=== PATIENT | male | born 1950 | race Caucasian/White ===

== ENCOUNTER 2017-07-18 09:37 | Emergency (ER) | payer MEDICARE, OTHER ==
[~2017-07-18] VITALS: Ht 180.3 cm; Wt 95.5 kg
[~2017-07-18 09:37] MED LIST: AMOXICILLIN 50500 MG PO; DILANTIN 100MG100 MG PO; DILANTIN PO; ENABLEX PO; MYSOLINE250 MG PO; NORCO 325 MG-51 TAB PO; PERCOCET 325 MG1 TA2 PO; PHENOBARBITAL; PHENOBARBITAL PO; PRIL40 PO; ULTRAM 50MG TAB50 MG PO; ZOFRAN8 MG PO
[2017-07-18 09:40] VITALS: BP 101/78; PULSE 112; TEMP 97.1
[2017-07-18] MEDS ORDERED: CARAFATE S1 GM/10 ML PO (11:46)
== END 2017-07-18 11:55 | disposition home or self-care (01) ==
LOC: COL.ER 09:37
DX: K20.8 Other esophagitis (principal)

== ENCOUNTER 2018-09-20 19:56 | Emergency (ER) | payer MEDICARE ==
[~2018-09-20] VITALS: Ht 180.3 cm; Wt 90.9 kg
[~2018-09-20 19:56] MED LIST changes: +CARAFATE S1 GM/10 ML PO
[2018-09-20 20:53] LABS: BASO % 0.6 % (0.0-2.0); EOS % 0.2 % (0-4.0); GRAN # 4.1 (1.4-6.5); HEMATOCRIT 40.1 % (42.0-52.0); HEMOGLOBIN 13.7 g/dl (13.5-18.0); LYMPH # 1.5 (1.2-3.4); LYMPH % 24.4 % (20.0-51.0); MEAN CELL VOLUME 89 fl (80.0-100.0); MEAN CORPUSCULAR HEMOGLOBIN 30 pg (27.0-31.0); MEAN CORPUSCULAR HGB CONC 34 g/dl (33.0-37.0); MEAN PLATELET VOLUME 9.4 fl (7.4-10.4); MONO # 0.6 (0.1-0.6); MONO % 9.3 % (1.7-9.3); PLATELET COUNT 271 K/mm3 (130-400); REDCELL DISTRIBUTION WIDTH-CV 12.9 % (11.5-14.5)
[2018-09-20 20:58] LABS: INR 1.1 (0.8-3.0); PROTHROMBIN TIME 12.3 SECONDS (9.7-12.8)
[2018-09-20 21:03] LABS: ALANINE AMINOTRANSFERASE 29 U/L (21-72); ALBUMIN 4.1 gm/dL (3.5-5.0); ALKALINE PHOSPHATASE 112 U/L (50-136); ANION GAP 10 mmol/L (7-16); AST,SGOT 28 U/L (15-37); BILIRUBIN,TOTAL 0.5 mg/dL (0.0-1.0); BLOOD UREA NITROGEN 2 mg/dL (9-20); CALCIUM 8.4 mg/dL (8.4-10.2); CARBON DIOXIDE 26 mmol/L (22-30); CHLORIDE 98 mmol/L (98-107); CREATININE, serum 0.46 mg/dL (0.66-1.25); GLUCOSE 106 mg/dL (74-106); POTASSIUM 3.1 mmol/L (3.4-5.0); SODIUM 134 mmol/L (137-145); TOTAL PROTEIN 7.5 gm/dL (6.4-8.2)
[2018-09-20 21:14] LABS: TROPONIN-I < 0.012 ng/mL (0.000-0.034)
[2018-09-20] MEDS ORDERED: KEPPRA 500MG500 MG PO (21:15)
[2018-09-20 21:17] LABS: D-DIMER > 5250.00 ng/mLDDu (200-230)
[2018-09-20 21:18] LABS: PROLACTIN 49.2 ng/mL (3.7-17.9)
[2018-09-20 22:56] LABS: COLLECTION METHOD CLEAN CATCH
[2018-09-20 23:02] LABS: PH 7 (5-8); SQUAMOUS EPITHELIAL None Seen /hpf; URINE APPEARANCE Clear; URINE BACTERIA Rare /hpf; URINE BILIRUBIN Negative (NEGATIVE); URINE BLOOD Negative (NEGATIVE); URINE COLOR Colorless; URINE GLUCOSE Negative (NEGATIVE); URINE KETONE Negative (NEGATIVE); URINE LEUKOCYTE ESTERASE Negative (NEGATIVE); URINE NITRATE Negative (NEGATIVE); URINE PROTEIN(semi-quant) Negative (NEGATIVE); URINE RBC None Seen /hpf; URINE UROBILINOGEN Negative (NEGATIVE)
[2018-09-21 00:38] VITALS: BP 106/79; PULSE 78; TEMP 97.4
[2018-09-21 15:35] LABS: PHENOBARBITAL 37 ug/mL (15-40)
[2018-09-24 11:50] LABS: LEVETIRACETAM <2.0 mcg/mL (())
== END 2018-09-21 00:55 | disposition home or self-care (01) ==
LOC: COL.ER 19:56
PROVIDERS: Emergency Medicine
DX: G40.909 Epilepsy, unspecified, not intractable, without status epilepticus (principal); F31.9 Bipolar disorder, unspecified; E87.6 Hypokalemia; F99 Mental disorder, not otherwise specified
CPT/HCPCS: J1200; J1630; J7030; Q9967

== ENCOUNTER 2019-03-01 17:02 | Emergency (ER) | payer MEDICARE ==
[~2019-03-01] VITALS: Ht 180.3 cm; Wt 72.7 kg
[~2019-03-01 17:02] MED LIST changes: +KEPPRA 500MG500 MG PO
[2019-03-01 17:22] VITALS: TEMP 98.1
[2019-03-01 18:33] LABS: BASO # 0.1 (0.0-0.2); BASO % 0.9 % (0.0-2.0); EOS # 0.1 (0.0-0.7); EOS % 1.2 % (0-4.0); GRAN # 3.8 (1.4-6.5); GRAN % 66.7 % (42.2-75.2); HEMATOCRIT 41.6 % (42.0-52.0); HEMOGLOBIN 14.2 g/dl (13.5-18.0); LYMPH # 1.3 (1.2-3.4); LYMPH % 22.6 % (20.0-51.0); MEAN CELL VOLUME 89 fl (80.0-100.0); MEAN CORPUSCULAR HEMOGLOBIN 30 pg (27.0-31.0); MEAN CORPUSCULAR HGB CONC 34 g/dl (33.0-37.0); MEAN PLATELET VOLUME 9.3 fl (7.4-10.4); MONO # 0.5 (0.1-0.6); MONO % 8.4 % (1.7-9.3); PLATELET COUNT 256 K/mm3 (130-400); RED BLOOD COUNT 4.67 M/mm3 (4.20-5.60); REDCELL DISTRIBUTION WIDTH-CV 13.2 % (11.5-14.5)
[2019-03-01 18:49] LABS: ALANINE AMINOTRANSFERASE 14 U/L (21-72); ALBUMIN 4.1 gm/dL (3.5-5.0); ALKALINE PHOSPHATASE 101 U/L (50-136); ANION GAP 11 mmol/L (7-16); AST,SGOT 32 U/L (15-37); BILIRUBIN,TOTAL 0.6 mg/dL (0.0-1.0); BLOOD UREA NITROGEN 7 mg/dL (9-20); CALCIUM 8.8 mg/dL (8.4-10.2); CARBON DIOXIDE 25 mmol/L (22-30); CHLORIDE 101 mmol/L (98-107); CREATININE, serum 0.47 (0.66-1.25); GLUCOSE 110 mg/dL (74-106); LIPASE 51 U/L (23-300); POTASSIUM 3.9 mmol/L (3.4-5.0); SODIUM 138 mmol/L (137-145); TOTAL PROTEIN 7.8 gm/dL (6.4-8.2)
[2019-03-01 19:01] LABS: TROPONIN-I < 0.012 ng/mL (0.000-0.035)
[2019-03-01 20:00] VITALS: BP 95/79; PULSE 80
[2019-03-01] MEDS ORDERED: VALIUM 5MG T5 MG/TAB PO (20:06)
== END 2019-03-01 20:20 | disposition home or self-care (01) ==
LOC: COL.ER 17:02
PROVIDERS: Emergency Medicine
DX: G47.00 Insomnia, unspecified (principal); R56.9 Unspecified convulsions; Z86.69 Personal history of other diseases of the nervous system and sense organs
CPT/HCPCS: J1200; J1630; J2060; J7030

== ENCOUNTER 2020-10-06 10:20 | Inpatient (IN) | payer MEDICARE, OTHER ==
[~2020-10-06] VITALS: Ht 180.3 cm; Wt 90.9 kg
[~2020-10-06 10:20] MED LIST changes: +MYSOLINE 250MG250 MG PO; -MYSOLINE250 MG PO; -PHENOBARBITAL PO; +PHENOBARBITAL32.4 MG PO; +VALIUM 5MG T5 MG/TAB PO
[2020-10-06 11:50] LABS: ALANINE AMINOTRANSFERASE 15 U/L (4-49); ALBUMIN 3.7 gm/dL (3.5-5.0); ALKALINE PHOSPHATASE 158 U/L (50-136); ANION GAP 7 mmol/L (7-16); AST,SGOT 34 U/L (15-37); BILIRUBIN,TOTAL 0.7 mg/dL (0.0-1.0); CALCIUM 8.5 mg/dL (8.4-10.2); CARBON DIOXIDE 29 mmol/L (22-30); CHLORIDE 97 mmol/L (98-107); CREATININE, serum 0.52 (0.66-1.25); GLUCOSE 115 mg/dL (74-106); SODIUM 134 mmol/L (137-145); TOTAL PROTEIN 7.2 gm/dL (6.4-8.2)
[2020-10-06 11:54] LABS: BASO # 0.1 (0.0-0.2); EOS # 0.3 (0.0-0.7); EOS % 4.9 % (0-4.0); GRAN # 3.4 (1.4-6.5); GRAN % 50.8 % (42.2-75.2); HEMATOCRIT 39.2 % (42.0-52.0); HEMOGLOBIN 13.4 g/dl (13.5-18.0); LYMPH # 2.1 (1.2-3.4); LYMPH % 31.2 % (20.0-51.0); MEAN CELL VOLUME 88 fl (80.0-100.0); MEAN CORPUSCULAR HEMOGLOBIN 30 pg (27.0-31.0); MEAN CORPUSCULAR HGB CONC 34 g/dl (33.0-37.0); MEAN PLATELET VOLUME 9.9 fl (7.4-10.4); MONO # 0.8 (0.1-0.6); MONO % 11.7 % (1.7-9.3); PLATELET COUNT 435 K/mm3 (130-400); RED BLOOD COUNT 4.46 M/mm3 (4.20-5.60); REDCELL DISTRIBUTION WIDTH-CV 13.5 % (11.5-14.5)
[2020-10-06 11:56] LABS: INR 1.3 (0.8-3.0); PROTHROMBIN TIME 14.2 SECONDS (9.7-12.8)
[2020-10-06 12:14] LABS: BLOOD UREA NITROGEN < 2 mg/dL (9-20)
[2020-10-06 12:15] LABS: POTASSIUM 2.9 mmol/L (3.4-5.0)
--- NOTE | 2020-10-06 13:45 | NUR ---
CONSULTED DR. CHETNA EDMOND FROM [facility] ON ORIF TOMORROW.
[2020-10-06 18:59] LABS: COLLECTION METHOD CLEAN CATCH
[2020-10-06 19:05] LABS: PH 7 (5-8); SQUAMOUS EPITHELIAL 0-2 /hpf; URINE APPEARANCE Clear; URINE BACTERIA None Seen /hpf; URINE BILIRUBIN Negative (NEGATIVE); URINE BLOOD Negative (NEGATIVE); URINE COLOR Yellow; URINE GLUCOSE Negative (NEGATIVE); URINE KETONE 1+ (NEGATIVE); URINE LEUKOCYTE ESTERASE Negative (NEGATIVE); URINE NITRATE Negative (NEGATIVE); URINE PROTEIN(semi-quant) Negative (NEGATIVE); URINE RBC 0-2 /hpf
[2020-10-06 20:00] VITALS: BP 97/55; PULSE 80; TEMP 98
--- NOTE | 2020-10-06 20:15 | NUR ---
During pt assessment pt was incontinent of bm and when cleaning pt there were to areas noted on the pt bottom. The pt has two areas on his bottom that have a scab on them. They are on both sides of the pt bottom. A dressing was applied at this time. The pt did state to me that he has had some areas that were healing on his bottom. Pt has his call light within reach.
[2020-10-07] VITALS (15 sets, daily range): BP systolic 83–107; BP diastolic 51–60; PULSE 69–83; TEMP 97.4–98.4
--- NOTE | 2020-10-07 00:12 | NUR ---
Pt is currently resting in bed. Pt did take his potassium with apple juice. Pt has no complaints of pain at this time. He did request something to help he sleep and he was given melatonin at this time. Pt has his call light within reach and his bed is in lowest position.
--- NOTE | 2020-10-07 03:02 | NUR ---
Pt currently resting in bed. Pt has his call light within reach. Pt has been using the urinal throughout the night.
--- NOTE | 2020-10-07 05:06 | NUR ---
Pt blood pressures have been soft throughout the night. Pt vitals were checked this morning. The pt is due to have surgery this morning. So Dr. Driver was contacted at this time to update him on pt status. He ordered a 500 of NS bolus at this time. Pt is currently lying in bed and stated that he feels fine. Pt was informed about the change in his blood pressure and what the doctor has ordered. Pt has his call light within reach and his bed is in lowest position.
--- NOTE | 2020-10-07 05:56 | NUR ---
Pt was assessed this morning and the pt stated that he had only gone a little since the last time I emptied his urinal. Pt was bladder scanned at this time and it showed that the pt bladder had greater than 900. Pt had an order for a bello, pt stated he would probably need a catheter to empty his bladder because he felt like he needed to go. A 16fr bello was placed at this time. Pt tolerated well. The bello bag was emptied at this time and pt had 1150 as his output the urine was yellow and clear, no odor noted. Pt stated that he feels so much better and he didn't feel the pressure anymore. Pt has his call light within reach, lab is currently in his room doing lab draws.
[2020-10-07 06:38] LABS: BASO % 0.6 % (0.0-2.0); EOS # 0.2 (0.0-0.7); GRAN # 2.8 (1.4-6.5); GRAN % 53.2 % (42.2-75.2); HEMOGLOBIN 11.6 g/dl (13.5-18.0); LYMPH # 1.6 (1.2-3.4); LYMPH % 29.2 % (20.0-51.0); MEAN CELL VOLUME 91 fl (80.0-100.0); MEAN CORPUSCULAR HEMOGLOBIN 30 pg (27.0-31.0); MEAN CORPUSCULAR HGB CONC 33 g/dl (33.0-37.0); MEAN PLATELET VOLUME 9.8 fl (7.4-10.4); MONO # 0.7 (0.1-0.6); MONO % 12.8 % (1.7-9.3); PLATELET COUNT 354 K/mm3 (130-400); RED BLOOD COUNT 3.82 M/mm3 (4.20-5.60)
[2020-10-07 06:41] LABS: HEMATOCRIT 34.9 % (42.0-52.0)
[2020-10-07 06:48] LABS: ALBUMIN 3.1 gm/dL (3.5-5.0); BILIRUBIN,TOTAL 0.4 mg/dL (0.0-1.0); CALCIUM 7.8 mg/dL (8.4-10.2); CREATININE, serum 0.53 (0.66-1.25); POTASSIUM 3.4 mmol/L (3.4-5.0); TOTAL PROTEIN 6.1 gm/dL (6.4-8.2)
--- NOTE | 2020-10-07 16:27 | NUR ---
Tallow Pumper met with patient to discuss discharge planning. Patient has an ankle fracture and states when he injured it at home, his ex- who he lives with thought it was just a sprain and would not call for help. Patient states he doesn't have a phone and his ex- won't let him use hers. Patient also states that his ex- spends his social security money and spent his $600 stimulus money on her daughter's rent without his knowledge. Patient lives in [place] with his ex-, Toyin (ph#[phone]). Patient is difficult to complete intake with as he has difficulty focusing on SW's questions and frequently changes the subject to his previous jobs, his previous marriages, and things that have happened to him in the past. Patient states his primary care physician is Dr. Roberts. Patient states Toyin got him a walker recently and is normally independent with ADLS. Patient does not have Advance Directives. Patient states he has two biological children, Suzanne and Bailey but does not have their phone numbers. Patient could not remember Toyin's phone number or the phone numbers to his step-children, Cathy and Teagan. Patient states his step-daughter, Cathy is the one that checked up on him and finally convinced Toyin that he needed to be seen in the ED. Patient states he plans to return home at discharge and would be interested in Home Health. MEGAN will follow up on PT/OT recommendations. Patient to have surgery this afternoon. MEGAN made an APS report (intake #[id number]).
--- NOTE | 2020-10-07 17:00 | NUR ---
PATIENT GOING DOWN TO OR VIA BED. CONSENT ON CHART. PATIENT OFF FLOOR
--- NOTE | 2020-10-07 20:30 | NUR ---
PATIENT UP FROM PACU. VSS. NO COMPLAINTS OF PAIN. PATIENT ABLE TO MOVE HIS KNEE BUT NOT ANYTHING BELOW THAT. PATIENT IS CONCERNED ABOUT THE RODS IN HIS ANKLE. HE WANTS TO SLEEP ON HIS SIDE BUT TOLD HIM HE WOULD HAVE TO SLEEP ON HIS BACK. CALL LIGHT IS WITHIN REACH. NO OTHER NEEDS AT THIS TIME.
[2020-10-08 03:54] VITALS: BP 96/51; PULSE 67; TEMP 97.7
--- NOTE | 2020-10-08 06:02 | NUR ---
PATIENT SLEPT ON AND OFF THROUGHOUT THE NIGHT. NO COMPLAINTS OF PAIN. PATIENT IS CONCERNED ABOUT HIS LEG AND NOT BEING ABLE TO SLEEP ON HIS SIDE. BLOOD PRESSURES HAVE BEEN SOFT. FLUIDS RUNNING AT 125/HOUR.
[2020-10-08 07:14] LABS: BASO % 0.6 % (0.0-2.0); EOS % 0.5 % (0-4.0); GRAN # 4.2 (1.4-6.5); GRAN % 64.5 % (42.2-75.2); HEMOGLOBIN 11.5 g/dl (13.5-18.0); LYMPH # 1.7 (1.2-3.4); LYMPH % 25.6 % (20.0-51.0); MEAN CELL VOLUME 95 fl (80.0-100.0); MEAN CORPUSCULAR HEMOGLOBIN 30 pg (27.0-31.0); MEAN CORPUSCULAR HGB CONC 32 g/dl (33.0-37.0); MONO # 0.6 (0.1-0.6); MONO % 8.5 % (1.7-9.3); PLATELET COUNT 354 K/mm3 (130-400); RED BLOOD COUNT 3.85 M/mm3 (4.20-5.60); REDCELL DISTRIBUTION WIDTH-CV 14.4 % (11.5-14.5)
[2020-10-08 07:23] LABS: HEMATOCRIT 36.4 % (42.0-52.0)
[2020-10-08 07:31] LABS: CALCIUM 7.9 mg/dL (8.4-10.2); CREATININE, serum 0.44 (0.66-1.25); POTASSIUM 4.1 mmol/L (3.4-5.0)
[2020-10-08 08:00] VITALS: BP 121/65; PULSE 97; TEMP 97.9
--- NOTE | 2020-10-08 10:31 | NUR ---
Initial visit; Patient thanked Roller Helper for offering God's blessings and praying with him. Patient liked talking about his spirituality.
--- NOTE | 2020-10-08 11:23 | NUR ---
PT REFUSING TO TAKE HOSPITAL PROVIDED MEDICATIONS. ONLY WANTS TO TAKE MEDICATION FROM HOME. DR. GRISSOM NOTIFIED. DRESSING TO RIGHT ANKLE CDI WITH OCCLUSIVE ARMAND WRAP OVER INCISION.
[2020-10-08 13:11] VITALS: BP 95/47; PULSE 78; TEMP 97.8
[2020-10-08 16:00] VITALS: BP 98/62; PULSE 80; TEMP 98.1
--- NOTE | 2020-10-08 16:02 | NUR ---
Flame Hardening Machine Operator collaborated with PT/OT and they are recommending placement for patient. MEGAN met with patient who states he is agreeable to placement locally or out of town. MEGAN contacted patient's ex , Toyin (ph#[phone]) who advised they have been for 20 years but patient moved in with her about four years ago. Toyin states patient moved here from [place] and had been told he either needed to move in with family or go to a mcc. Toyin advised that patient is independent with ADLS but she does his grocery shopping for him. Toyin states that she just thought patient had a sprain. Toyin is in agreement that patient needs placement. MEGAN faxed referrals to [facility], [facility], [facility], and [facility]. MEGAN obtained Dr. Dunham's signature on non weightbearing letter and placed on patient's chart. [facility] declined referral. CELINA Denise SW here to see patient.
--- NOTE | 2020-10-08 16:07 | NUR ---
Horse Racing Manager gave referral to [facility]. Clary with [facility] advised patient to have neurology consult and they will screen on Sunday.
--- NOTE | 2020-10-08 16:21 | NUR ---
Hayden at [facility] advised they are out of network for [employer].
--- NOTE | 2020-10-08 16:47 | NUR ---
LOJA CATHETER DISCONTINUED PER JACQUELINE NUNEZ. PT TOLERATED WELL.
[2020-10-08 19:50] VITALS: BP 121/67; PULSE 85; TEMP 97.8
--- NOTE | 2020-10-08 22:19 | NUR ---
PATIENT RESTING IN BED WITH NO COMPLAINTS. TOLD HIM TO CALL IF HE FELT THE NEED TO HAVE A BOWEL MOVEMENT BECAUSE WE NEEDED A SAMPLE. PATIENT AGREED.
[2020-10-08 23:00] VITALS: BP 103/59; PULSE 79; TEMP 98.7
--- NOTE | 2020-10-08 23:11 | NUR ---
PATIENT REQUESTED LESS INTERRUPTIONS THROUGHOUT THE NIGHT SO MIDNIGHT VITALS WERE DONE AND MELATONIN WAS GIVEN AT THIS TIME. WILL CHECK ON PATIENT DURING THE NIGHT.
--- NOTE | 2020-10-09 01:44 | NUR ---
PATIENT HAD LOOSE BOWEL MOVEMENT. COLLECTED SPECIMEN FOR LAB AND TOOK DOWN. PATIENT CLEANED UP AND REPLACED MEPALEX ON BOTTOM. AREA REDDENED AND HAS A SCAB. PATIENT HAS NO OTHER NEEDS AT THIS TIME.
[2020-10-09 02:48] LABS: CLOSTRIDIUM DIFF A/B NEG; CLOSTRIDIUM DIFF A/B INTERP No C.diff present
[2020-10-09 04:00] VITALS: BP 103/59; PULSE 71; TEMP 97.7
--- NOTE | 2020-10-09 04:24 | NUR ---
PATIENT NEGATIVE FOR CDIFF AND OCCULT STOOL. CONTACT PERCAUTIONS DISCONTINUED.
[2020-10-09 06:55] LABS: BASO # 0.1 (0.0-0.2); EOS # 0.3 (0.0-0.7); EOS % 4.2 % (0-4.0); GRAN # 3.3 (1.4-6.5); GRAN % 56.5 % (42.2-75.2); HEMOGLOBIN 11.2 g/dl (13.5-18.0); LYMPH # 1.7 (1.2-3.4); LYMPH % 28.4 % (20.0-51.0); MEAN CELL VOLUME 92 fl (80.0-100.0); MEAN CORPUSCULAR HEMOGLOBIN 30 pg (27.0-31.0); MEAN CORPUSCULAR HGB CONC 33 g/dl (33.0-37.0); MEAN PLATELET VOLUME 9.7 fl (7.4-10.4); MONO # 0.6 (0.1-0.6); MONO % 9.7 % (1.7-9.3); PLATELET COUNT 329 K/mm3 (130-400); REDCELL DISTRIBUTION WIDTH-CV 14.6 % (11.5-14.5)
[2020-10-09 06:59] LABS: HEMATOCRIT 34.2 % (42.0-52.0)
[2020-10-09 07:05] LABS: CALCIUM 8.1 mg/dL (8.4-10.2); CREATININE, serum 0.49 (0.66-1.25); POTASSIUM 3.8 mmol/L (3.4-5.0)
[2020-10-09 08:29] VITALS: BP 105/57; PULSE 84; TEMP 98.1
--- NOTE | 2020-10-09 10:19 | NUR ---
SW is waiting on screens for [facility], [facility], [facility] (will screen Sunday), [facility], [place], and [place]. No new needs. Social work will continue to follow.
--- NOTE | 2020-10-09 11:59 | NUR ---
Patient alert and oriented, answers questions appropriately. See assessment. RLE with gauze/ABD/external fixator in place. Able to feel and wiggle toes to RLE. NWB RLE. External fixator cleaned with alcohol. PT/OT. No c/o at this time.
[2020-10-09 12:06] VITALS: BP 106/68; PULSE 87; TEMP 97.6
[2020-10-09 16:08] VITALS: BP 99/65; PULSE 84; TEMP 97.5
[2020-10-09 20:00] VITALS: BP 101/64; PULSE 84; TEMP 98.8
--- NOTE | 2020-10-09 21:53 | NUR ---
PATIENT INCONTINENT OF STOOL. CLEANED HIM UP AND FULL LINEN CHANGE. RIGHT ANKLE ELEVATED. PATIENT TOOK NIGHT MEDS AND REQUESTED HIS MELATONIN AROUND 11 PM.
[2020-10-09 23:55] VITALS: BP 109/56; PULSE 80; TEMP 98.6
[2020-10-10 04:15] VITALS: BP 104/66; PULSE 78; TEMP 97.7
--- NOTE | 2020-10-10 05:45 | NUR ---
PATIENT SLEPT WELL THROUGHOUT THE NIGHT WITH NO COMPLAINTS OF PAIN. RIGHT LOWER EXTREMITY ELEVATED.
[2020-10-10 06:23] LABS: BASO # 0.1 (0.0-0.2); BASO % 1.3 % (0.0-2.0); EOS # 0.3 (0.0-0.7); EOS % 6.1 % (0-4.0); GRAN # 2.5 (1.4-6.5); GRAN % 45.1 % (42.2-75.2); LYMPH # 1.9 (1.2-3.4); LYMPH % 35.7 % (20.0-51.0); MEAN CELL VOLUME 93 fl (80.0-100.0); MEAN CORPUSCULAR HEMOGLOBIN 31 pg (27.0-31.0); MEAN CORPUSCULAR HGB CONC 33 g/dl (33.0-37.0); MEAN PLATELET VOLUME 10.1 fl (7.4-10.4); MONO # 0.6 (0.1-0.6); MONO % 11.6 % (1.7-9.3); PLATELET COUNT 314 K/mm3 (130-400); RED BLOOD COUNT 3.59 M/mm3 (4.20-5.60); REDCELL DISTRIBUTION WIDTH-CV 14.9 % (11.5-14.5)
[2020-10-10 06:28] LABS: HEMATOCRIT 33.5 % (42.0-52.0)
[2020-10-10 06:30] LABS: CALCIUM 7.9 mg/dL (8.4-10.2); CREATININE, serum 0.52 (0.66-1.25); POTASSIUM 3.8 mmol/L (3.4-5.0)
[2020-10-10 07:51] VITALS: BP 105/64; PULSE 89; TEMP 97.8
--- NOTE | 2020-10-10 11:13 | NUR ---
Patient alert and oriented, answers questions appropriately. See assessment. RLE with ARMAND/gauze/external fixator in place. External fixator cleaned with alcohol pads. No numbness or tingling to RLE, able to wiggle toes. NWB RLE. Post op exercises reviewed with patient. No c/o at this time.
[2020-10-10 11:50] VITALS: BP 101/56; PULSE 80; TEMP 98
[2020-10-10 15:52] VITALS: BP 114/83; PULSE 81; TEMP 98.5
[2020-10-10 19:17] VITALS: BP 108/71; PULSE 82; TEMP 97.4
--- NOTE | 2020-10-10 22:17 | NUR ---
Pt currently sitting up in bed. Pt did have a loose bm tonight. He does have some redness on his bottom and two areas that look like they are healing. A dressing was applied to bottom at this time. Pt has no other concerns at this time. Pt stated that he has had amazing care since he has been her and he feels like he is well taken care of. Pt has his call light within reach and his bed is in lowest position and seziure precautions in place.
[2020-10-10 23:48] VITALS: BP 116/67; PULSE 80; TEMP 97.6
--- NOTE | 2020-10-11 01:01 | NUR ---
Pt requested something to help him sleep at this time. Pt was given melatonin at this time. Pt has his call light within reach and his bed is in lowest position. Pt was reminded to try to reposition a little to relieve some pressure off of his bottom.
[2020-10-11 04:19] VITALS: BP 109/62; PULSE 80; TEMP 97
--- NOTE | 2020-10-11 05:29 | NUR ---
Pt resting in bed. Pt has his call light within reach. Pt has rested well since he had his melatonin.
[2020-10-11 07:03] LABS: BASO % 0.7 % (0.0-2.0); EOS # 0.3 (0.0-0.7); EOS % 5.1 % (0-4.0); GRAN # 3.1 (1.4-6.5); GRAN % 53.9 % (42.2-75.2); LYMPH # 1.7 (1.2-3.4); LYMPH % 29.9 % (20.0-51.0); MEAN CELL VOLUME 93 fl (80.0-100.0); MEAN CORPUSCULAR HEMOGLOBIN 30 pg (27.0-31.0); MEAN CORPUSCULAR HGB CONC 32 g/dl (33.0-37.0); MONO # 0.6 (0.1-0.6); PLATELET COUNT 323 K/mm3 (130-400); RED BLOOD COUNT 3.65 M/mm3 (4.20-5.60); REDCELL DISTRIBUTION WIDTH-CV 14.7 % (11.5-14.5)
[2020-10-11 07:09] LABS: CREATININE, serum 0.65 (0.66-1.25); POTASSIUM 3.7 mmol/L (3.4-5.0)
[2020-10-11 07:25] LABS: HEMATOCRIT 33.9 % (42.0-52.0)
[2020-10-11 07:48] VITALS: BP 107/64; PULSE 86; TEMP 98.2
[2020-10-11 11:29] VITALS: BP 103/63; PULSE 87; TEMP 97.9
--- NOTE | 2020-10-11 11:30 | NUR ---
Patient has been resting comfortably at this time. Minimal complaints of pain. Had some pain with transfer to chair. Denies nausea. Dressing to RLE is C/D/I. No drainage. External fixation intact. CMS intact to RLE. Utlram given after he got up. Patient has a lot of questions about his other foot. Explained Ortho doctor will talk with him. No other changes at this time. Call light within reach.
[2020-10-11 16:01] VITALS: BP 103/63; PULSE 75; TEMP 97.7
--- NOTE | 2020-10-11 16:33 | NUR ---
Artist Representative faxed updates to [facility], [facility], and [facility]. ME[facility] also [facility]. Cuong from [facility] and [facility] have both declined referral. MEGAN received a [facility] who advised they cannot accept referral with the external fixator. MEGAN contacted Rach from [facility] who advised they would need a copy of patient's Medicaid Application and three months of bank statements. Rach also inquired about patient's [employer] number because it's coming up as invalid. MEGAN confirmed with Gwendolyn that the [employer] number on the facesheet is correct. MEGAN contacted Mena at [facility] who advised they are still reviewing and would like a copy of patient's Medicaid Application. MEGAN contacted Amelie at [facility] who advised she would work on getting in touch with [employer]. MEGAN has consulted Gwendolyn with financial counseling who will complete Medicaid Application with patient. MEGAN spoke with Sam at [facility] who expressed concern about patient's non weight bearing status and possibility of patient needing to private pay. Sam also expressed concern about APS involvement with patient. MEGAN received a phone call from Toyin who wanted to clarify some things with MEGAN. Toyin states patient always has access to his funds, she just does the shopping and bills for patient. Toyin states she gives patient $100 per month out of his check to spend on whatever he wants. Toyin states they split bills evening. Toyin also states that she and her kids are patient's family and she really thought his ankle was just sprained. MEGAN will continue to follow.
--- NOTE | 2020-10-11 18:49 | NUR ---
Patient is doing well this afternoon. No other changes at this time. SW is still working on finding placement. Pain well controlled with ultram. Call light within reach.
[2020-10-11 20:05] VITALS: BP 114/65; PULSE 89; TEMP 99
--- NOTE | 2020-10-11 20:16 | NUR ---
Resting in bed. Assessment complete. Bases bilaterally diminshed otherwise clear. Heart sounds normal. Bowels active x4. Pulses present throughout. Left lower extremity edema +2. Right ankle bulky dressing in place. CMS intact. Reports 7/10 pain. Given PRN tramadol at this time. INT right wrist flushed without complications. Denies other needs at this time. Call light in reach.
--- NOTE | 2020-10-12 00:11 | NUR ---
Resting in bed. Denies pain. Given PRN melatonin at this time. Denies other needs. Call light in reach.
[2020-10-12 01:13] VITALS: BP 99/58; PULSE 73; TEMP 97.2
--- NOTE | 2020-10-12 01:56 | NUR ---
Resting in bed asleep. Call light in reach.
--- NOTE | 2020-10-12 03:53 | NUR ---
Resting in bed. Denies needs. Call light in reach.
[2020-10-12 04:27] VITALS: BP 95/60; PULSE 80; TEMP 98.4
--- NOTE | 2020-10-12 05:39 | NUR ---
Patient required PRN tramadol for pain control during night. Otherwise uneventful night. Resting in bed asleep this AM. Call light in reach.
--- NOTE | 2020-10-12 06:58 | NUR ---
Report given to VERONIKA Barnes
[2020-10-12 08:00] VITALS: BP 111/67; PULSE 82; TEMP 97.9
[2020-10-12] MEDS ORDERED: ASPI325T6 PO (08:52)
[2020-10-12] MEDS ORDERED: ULTRAM 50MG TAB50 MG PO ×3 (08:55→17:57)
[2020-10-12 11:17] VITALS: BP 94/64; PULSE 80; TEMP 97.8
[2020-10-12 14:49] VITALS: BP 94/64; PULSE 80; TEMP 97.8
--- NOTE | 2020-10-12 15:31 | NUR ---
Mask Design Engineer was contacted by Amelie at [facility] who advised they obtained authorization from [facility] for patient and can accept today. Patient will have a $70/day co pay. Gwendolyn, Financial Counselor completed and submitted an application for Medicaid, then provided MEGAN with a copy. MEGAN met with patient who is agreeable to [facility]. MEGAN advised patient he would have a $70/day co pay. Patient verbalized understanding and stated he thought this was reasonable. Patient states Gwendolyn helped him apply for Medicaid. MEGAN collaborated with Amelie to set up transport for 1500. MEGAN faxed discharge orders, copy of Medicaid application, and negative COVID results to Amelie at [facility]. Patient wanted MEGAN to call Toyin to notify her that he was going to [facility]. MEGAN contacted Toyin and notified her patient to discharge to [facility] today. MEGAN also notified CELINA Denise Mask Design Engineer about discharge. No additional needs at this time.
--- NOTE | 2020-10-12 16:00 | NUR ---
Patient is discharging to [facility] halfway. Report called to RN at the longterm. All belongings packed up and sent with patient. INT discontinued by charge nurse. Info packed sent with patient.
[2020-10-13] MEDS ORDERED: ULTRAM 50MG TAB50 MG PO (12:51)
== END 2020-10-12 16:30 | DRG 493 ==
LOC: COL.ER 10:20 → SURG 13:14
PROVIDERS: Nurse Practitioner Primary Care; Orthopaedic Surgery; Physician Assistant; Student in an Organized Health Care Education/Training Program; ADMIT Hospitalist
PROC: 0QSG34Z Reposition Right Tibia with Internal Fixation Device, Percutaneous Approach (ICD-10-PCS; 2020-10-07)
PROC: 0QSG34Z Reposition Right Tibia with Internal Fixation Device, Percutaneous Approach (ICD-10-PCS; principal; 2020-10-07 16:30)
DX: S82.851A Displaced trimalleolar fracture of right lower leg, initial encounter for closed fracture (principal); K92.1 Melena; E87.1 Hypo-osmolality and hyponatremia; S93.01XA Subluxation of right ankle joint, initial encounter; S93.439A Sprain of tibiofibular ligament of unspecified ankle, initial encounter; G40.909 Epilepsy, unspecified, not intractable, without status epilepticus; D64.9 Anemia, unspecified; E87.6 Hypokalemia; I95.9 Hypotension, unspecified; R74.8 Abnormal levels of other serum enzymes; F32.9 Major depressive disorder, single episode, unspecified; G47.00 Insomnia, unspecified; M21.6X2 Other acquired deformities of left foot; R19.7 Diarrhea, unspecified; D69.6 Thrombocytopenia, unspecified; Z20.822 Contact with and (suspected) exposure to COVID-19; Z87.891 Personal history of nicotine dependence
CPT/HCPCS: 99222-AI; 99232-AI; 99239; A9284; C1713; J0690; J1100; J2250; J2405; J2704; J2795; J3010; J3480; J7030; J7040

== ENCOUNTER 2021-06-24 07:14 | Observation (INO) | payer MEDICARE, MEDICAID ==
[~2021-06-24] VITALS: Ht 180.3 cm; Wt 95.4 kg
[~2021-06-24 07:14] MED LIST changes: +ASPI325T6 PO
[2021-06-24 08:10] LABS: BASO # 0.1 K/mm3 (0.0-0.2); BASO % 0.9 % (0.0-2.0); EOS # 0.3 K/mm3 (0.0-0.7); EOS % 4.7 % (0-4.0); GRAN # 3.1 K/mm3 (1.4-6.5); HEMATOCRIT 43.8 % (42.0-52.0); HEMOGLOBIN 14.3 g/dl (13.5-18.0); LYMPH # 1.4 K/mm3 (1.2-3.4); LYMPH % 25.3 % (20.0-51.0); MEAN CELL VOLUME 92 fl (80.0-100.0); MEAN CORPUSCULAR HEMOGLOBIN 30 pg (27.0-31.0); MEAN CORPUSCULAR HGB CONC 33 g/dl (33.0-37.0); MEAN PLATELET VOLUME 9.2 fl (7.4-10.4); MONO # 0.6 K/mm3 (0.1-0.6); MONO % 11.9 % (1.7-9.3); PLATELET COUNT 251 K/mm3 (130-400); RED BLOOD COUNT 4.78 M/mm3 (4.20-5.60); REDCELL DISTRIBUTION WIDTH-CV 13.6 % (11.5-14.5)
[2021-06-24 08:30] LABS: ALBUMIN 3.5 gm/dL (3.4-4.8); BILIRUBIN,TOTAL 0.5 mg/dL (0.2-1.2); CALCIUM 8.7 mg/dL (8.4-10.2); CREATININE, serum 0.8 mg/dL (0.72-1.25); POTASSIUM 3.8 mmol/L (3.5-4.5); TOTAL PROTEIN 7.4 gm/dL (6.2-8.1)
[2021-06-24 08:39] LABS: TROPONIN-I 0.05 ng/mL (0.00-0.033)
[2021-06-24] MEDS ORDERED: PHENOBARBITAL60 MG PO (17:36)
[2021-06-24 19:54] VITALS: BP 122/73; PULSE 86; TEMP 98.4
--- NOTE | 2021-06-24 22:57 | NUR ---
Patient arrived to surgical floor room 343 from ER around 19:40 pm. Patient alert and oriented. Patient denies chest pain, headache, and ankle pain at this time. VS stable. Oriented patient to the room. Scheduled seizure medications given per NOV. Seizure precautions in place. Malik light in reach. Bed alarms on. Will continue to monitor.
[2021-06-24 23:19] VITALS: BP 110/64; PULSE 73; TEMP 97.9
[2021-06-25 03:11] VITALS: BP 91/52; PULSE 86; TEMP 98.5
--- NOTE | 2021-06-25 06:42 | NUR ---
Patient slept well over the night. No c/o pain or discomfort throughout the night. Patient use call light to call nurse around 06:30 am and reports he is starting to have headache again. Will give PRN Tylenol for headache.
--- NOTE | 2021-06-25 06:46 | NUR ---
PRN Tylenol given for headache. Patient denies chest pain, N/V, or dizziness. Call light in reach.
[2021-06-25 07:10] VITALS: BP 119/91; PULSE 77; TEMP 97.8
[2021-06-25 07:18] LABS: CHOLESTEROL RISK RATIO 2.5
[2021-06-25 08:57] LABS: BASO # 0.1 K/mm3 (0.0-0.2); BASO % 0.8 % (0.0-2.0); EOS # 0.2 K/mm3 (0.0-0.7); GRAN # 3.8 K/mm3 (1.4-6.5); HEMATOCRIT 41.3 % (42.0-52.0); HEMOGLOBIN 13.9 g/dl (13.5-18.0); LYMPH # 1.6 K/mm3 (1.2-3.4); LYMPH % 25.4 % (20.0-51.0); MEAN CELL VOLUME 90 fl (80.0-100.0); MEAN CORPUSCULAR HEMOGLOBIN 30 pg (27.0-31.0); MEAN CORPUSCULAR HGB CONC 34 g/dl (33.0-37.0); MEAN PLATELET VOLUME 10.2 fl (7.4-10.4); MONO # 0.7 K/mm3 (0.1-0.6); MONO % 10.3 % (1.7-9.3); PLATELET COUNT 280 K/mm3 (130-400); REDCELL DISTRIBUTION WIDTH-CV 13.5 % (11.5-14.5)
[2021-06-25 09:07] LABS: CALCIUM 8.9 mg/dL (8.4-10.2); CREATININE, serum 0.68 mg/dL (0.72-1.25); POTASSIUM 3.9 mmol/L (3.5-4.5)
[2021-06-25 10:00] VITALS: BP 105/60; PULSE 82; TEMP 98
--- NOTE | 2021-06-25 11:24 | NUR ---
Chaplain bauer and offered support with patient.
--- NOTE | 2021-06-25 15:36 | NUR ---
Plan is to return home to [facility] locally where patient resides. Patient reports that his is fairly independent and his PCP is Dr. Hodgson . Patient [facility]. Patient indicated that he has a cane and walker and a cardio box. Patient reports that he has a DTR [facility] who lives in [facility] and he has a living will and a 5000 dollar policy. Patient reports that he does not talk to his DTR often but the clinical administrator of the hotel know how to get a hold of her and to notify her if he passes or is unable to verbals and the howner of the hotel knows where the paperwork is. Patient denies having any other concerns and does not want [facility]. Will follow for care.
[2021-06-25 16:00] VITALS: BP 94/57; PULSE 87; TEMP 98.1
--- NOTE | 2021-06-25 18:29 | NUR ---
Patient has been doing well today. Minimal complaints of pain. Denies nausea. Explained his doppler won't be done today. Physician aware as well. Headache has been off and on today but patient did not want anything additional for pain. No other changes at this time. Call light within reach.
[2021-06-25 20:14] VITALS: BP 107/69; PULSE 80; TEMP 98.8
--- NOTE | 2021-06-25 20:25 | NUR ---
PT IN BED, ASKING FOR HS MEDS. IS ALERT AND ORIENTED X4. HAS SL X2 TO RT WRIST. DISTAL SL INFILTRATED WHEN FLUSHED AND REMOVED AT THIS TIME, ANGIOCATH INTACT. VOIDING PER URINAL. ON SZ PRECAUTIONS. HAS SPLINT TO LEFT WRIST. BILATERAL LOWER LEG SWELLING NOTED, WITH FLAKY/SCALY SKIN TO LOWER LEGS AND FEET. DENIES PAIN.
[2021-06-26] VITALS (7 sets, daily range): BP systolic 91–114; BP diastolic 59–85; PULSE 84–92; TEMP 97.4–98.5
[2021-06-26 01:43] LABS: PHENOBARBITAL 21 ug/mL (15-40)
--- NOTE | 2021-06-26 06:00 | NUR ---
PT RESTING IN BED. NO CONCERNS VOICED AT THIS TIME.
[2021-06-26 07:38] LABS: BASO # 0.1 K/mm3 (0.0-0.2); BASO % 1.1 % (0.0-2.0); EOS # 0.2 K/mm3 (0.0-0.7); EOS % 3.6 % (0-4.0); GRAN # 2.7 K/mm3 (1.4-6.5); GRAN % 47.3 % (42.2-75.2); HEMATOCRIT 40.5 % (42.0-52.0); HEMOGLOBIN 13.4 g/dl (13.5-18.0); LYMPH % 35.5 % (20.0-51.0); MEAN CELL VOLUME 92 fl (80.0-100.0); MEAN CORPUSCULAR HEMOGLOBIN 31 pg (27.0-31.0); MEAN CORPUSCULAR HGB CONC 33 g/dl (33.0-37.0); MEAN PLATELET VOLUME 10.3 fl (7.4-10.4); MONO # 0.7 K/mm3 (0.1-0.6); MONO % 12.1 % (1.7-9.3); PLATELET COUNT 253 K/mm3 (130-400); REDCELL DISTRIBUTION WIDTH-CV 13.2 % (11.5-14.5)
[2021-06-26 08:01] LABS: CALCIUM 8.6 mg/dL (8.4-10.2); CREATININE, serum 0.66 mg/dL (0.72-1.25); MAGNESIUM 2.2 mg/dL (1.6-2.6); POTASSIUM 3.6 mmol/L (3.5-4.5)
--- NOTE | 2021-06-26 18:00 | NUR ---
Patient has been doing well. He had a headache this morning but has been fine since getting tylenol. Attempted several times to get him in the shower but he refused. Also tried to get him to brush his teeth. Explained he has a procedure tomorrow and he needs to get cleaned up, he still refused. He has not been eating much today. He stated he has no appetite. No other changes at this time. Call light within reach.
--- NOTE | 2021-06-26 20:30 | NUR ---
Pt. sitting up in bed. Pt. is A&OX3, assessment complete. INT to rt. wrist patent. Pt. offered a shower this evening. Pt. refused. Pt. denies pain or other needs, call light within reach.
[2021-06-27] VITALS (9 sets, daily range): BP systolic 90–120; BP diastolic 55–71; PULSE 78–102; TEMP 97.4–98.2
--- NOTE | 2021-06-27 08:00 | NUR ---
PATIENT IS A&O. VSS ON TELE. HOLDING BETA BLOCKERS FOR SCHEDULED [place] THIS AM. BLOOD THINNERS CURRENTLY ON HOLD. NPO. CONSENT ON CHART. PATIENT DENIES CHEST PAIN OR SOA. NO C/O N/V. GAVE OTHER SCHEDULED AM MEDS INCLUDING SEIZURE MEDS. SEIZURE PRECAUTIONS INPLACE. RIGHT WRIST IV TO INT. HEAD TO TOE ASSESSMENT COMPLETE, SEE CHARTING. NO OTHER NEEDS AT THIS TIME. CALL LIGHT IN REACH.
--- NOTE | 2021-06-27 08:45 | NUR ---
U.S. AT BEDSIDE OBTAINING V.DOPPLER
--- NOTE | 2021-06-27 10:53 | NUR ---
PATIENT GOING DOWN FOR BK
--- NOTE | 2021-06-27 14:58 | NUR ---
groundskeeping maintenance worker checked in with patient to adress needs before dc. The only request the patient has is a ride back to the motel. Patient states he has the money for it. Will arrange when ready to go.
--- NOTE | 2021-06-27 15:49 | NUR ---
PATIENT DISCHARGING HOME VIA "[facility]". GAVE DISCHARGE INSTRUCTIONS AND DISCUSSED F/U APT. ANSWERED QUESTIONS/CONCERNS. DC'D RIGHT WRIST IV, COVERED SITE WITH [facility]. CALLED PHARMACY TO BRING UP HOME MED, GIVEN TO PATIENT. ESCORTED OUT VIA WC. PATIENT DISCHARGED.
== END 2021-06-27 15:50 | disposition home or self-care (01) ==
LOC: COL.ER 07:14 → SURG 16:31
PROVIDERS: Emergency Medicine; Physician Assistant; ADMIT Student in an Organized Health Care Education/Training Program
DX: R07.9 Chest pain, unspecified (principal); R06.09 Other forms of dyspnea; R79.1 Abnormal coagulation profile; R51.9 Headache, unspecified; G40.909 Epilepsy, unspecified, not intractable, without status epilepticus; F32.9 Major depressive disorder, single episode, unspecified; M79.673 Pain in unspecified foot; Z79.899 Other long term (current) drug therapy; Z87.891 Personal history of nicotine dependence
CPT/HCPCS: A9500; G0378; J0780; J1650; J2785; Q9967

== ENCOUNTER 2021-08-24 08:52 | Emergency (ER) | payer MEDICARE, MEDICAID ==
[~2021-08-24] VITALS: Ht 177.8 cm; Wt 86.4 kg
[2021-08-24 08:52] VITALS: TEMP 98.3
[~2021-08-24 08:52] MED LIST changes: +PHENOBARBITAL60 MG PO
[2021-08-24 10:15] LABS: BASO # 0.1 K/mm3 (0.0-0.2); BASO % 0.8 % (0.0-2.0); EOS # 0.3 K/mm3 (0.0-0.7); EOS % 4.6 % (0-4.0); GRAN # 3.4 K/mm3 (1.4-6.5); GRAN % 58.2 % (42.2-75.2); HEMATOCRIT 42.7 % (42.0-52.0); HEMOGLOBIN 14.1 g/dl (13.5-18.0); LYMPH # 1.5 K/mm3 (1.2-3.4); LYMPH % 24.6 % (20.0-51.0); MEAN CELL VOLUME 91 fl (80.0-100.0); MEAN CORPUSCULAR HEMOGLOBIN 30 pg (27.0-31.0); MEAN CORPUSCULAR HGB CONC 33 g/dl (33.0-37.0); MEAN PLATELET VOLUME 9.4 fl (7.4-10.4); MONO # 0.7 K/mm3 (0.1-0.6); MONO % 11.5 % (1.7-9.3); PLATELET COUNT 241 K/mm3 (130-400); RED BLOOD COUNT 4.72 M/mm3 (4.20-5.60); REDCELL DISTRIBUTION WIDTH-CV 13.2 % (11.5-14.5)
[2021-08-24 10:34] LABS: ALBUMIN 3.5 gm/dL (3.4-4.8); BILIRUBIN,TOTAL 0.3 mg/dL (0.2-1.2); CALCIUM 9.2 mg/dL (8.4-10.2); CREATININE, serum 0.74 mg/dL (0.72-1.25); POTASSIUM 4.1 mmol/L (3.5-4.5); TOTAL PROTEIN 7.2 gm/dL (6.2-8.1)
[2021-08-24 13:36] VITALS: BP 110/63; PULSE 85
--- NOTE | 2021-08-24 20:47 | NUR ---
shell worker met with patient as staff is concerned that patient requires a higher level of care due to increased difficulty caring for self at home. Patient resides at the [facility]. Worker and patient discuss need for increased level of care, however patient refuses this due to cost. Patient has previously been in skilled care and does not desire to return due to the cost. Patient has a daughter in [place] that he last talked to in July. Worker contacted patient's primary care provider, Dr Roberts and advised of concerns for a higher level of care and patient's refusal to consider. Patient stated he has hired [facility] to help with groceries and that he has meals on wheel. Worker filed an APS report # [id number].
== END 2021-08-24 13:42 | disposition home or self-care (01) ==
LOC: COL.ER 08:52
PROVIDERS: Personal Emergency Response Attendant
DX: R53.1 Weakness (principal); Z87.891 Personal history of nicotine dependence; W19.XXXA Unspecified fall, initial encounter
CPT/HCPCS: J7030

== ENCOUNTER 2021-11-19 17:58 | Emergency (ER) | payer MEDICARE, MEDICAID ==
[~2021-11-19] VITALS: Ht 177.8 cm; Wt 102.3 kg
[2021-11-19 18:14] VITALS: BP 120/69; PULSE 103; TEMP 98.3
[2021-11-19 18:37] LABS: BASO # 0.1 K/mm3 (0.0-0.2); BASO % 0.8 % (0.0-2.0); EOS # 0.3 K/mm3 (0.0-0.7); EOS % 3.6 % (0.0-4.0); GRAN # 4.4 K/mm3 (1.4-6.5); HEMATOCRIT 43.7 % (42.0-52.0); HEMOGLOBIN 14.3 g/dl (13.5-18.0); LYMPH # 2.2 K/mm3 (1.2-3.4); LYMPH % 28.1 % (20.0-51.0); MEAN CELL VOLUME 92 fl (80.0-100.0); MEAN CORPUSCULAR HEMOGLOBIN 30 pg (27-31); MEAN CORPUSCULAR HGB CONC 33 g/dl (33.0-37.0); MEAN PLATELET VOLUME 9.4 fl (7.4-10.4); MONO # 0.9 K/mm3 (0.1-0.6); MONO % 11.2 % (1.7-9.3); PLATELET COUNT 283 K/mm3 (130-400); RED BLOOD COUNT 4.76 M/mm3 (4.20-5.60); REDCELL DISTRIBUTION WIDTH-CV 13.6 % (11.5-14.5)
[2021-11-19 19:12] LABS: ALBUMIN 3.5 gm/dL (3.4-4.8); BILIRUBIN,TOTAL 0.2 mg/dL (0.2-1.2); CALCIUM 8.5 mg/dL (8.4-10.2); CREATININE, serum 0.73 mg/dL (0.72-1.25); POTASSIUM 4.6 mmol/L (3.5-4.5); TOTAL PROTEIN 7.2 gm/dL (6.2-8.1)
[2021-11-19] MEDS ORDERED: CEPHALEXIN500 M1 PO (20:08)
== END 2021-11-19 20:22 | disposition home or self-care (01) ==
LOC: COL.ER 17:58
PROVIDERS: Emergency Medicine
DX: L89.322 Pressure ulcer of left buttock, stage 2 (principal); L03.317 Cellulitis of buttock
CPT/HCPCS: J2270; J2405; Q9967

== ENCOUNTER 2024-06-27 20:50 | Observation (INO) | payer MEDICARE ==
[~2024-06-27] VITALS: Ht 180.3 cm; Wt 99.0 kg
[~2024-06-27 20:50] MED LIST changes: +CEPHALEXIN500 M1 PO
[2024-06-27 21:46] LABS: ALBUMIN 2.9 g/dL (3.4-4.8); BILIRUBIN,TOTAL 0.2 mg/dL (0.2-1.2); CALCIUM 8.1 mg/dL (8.4-10.2); CREATININE, serum 0.65 mg/dL (0.72-1.25); POTASSIUM 4.2 mEq/L (3.5-4.5); TOTAL PROTEIN 6.2 g/dl (6.2-8.1)
[2024-06-27 21:52] LABS: TROPONIN-I 0.022 ng/mL (0.00-0.033)
[2024-06-27] MEDS ORDERED: Iohexol 300 - 100 ML VIAL IV ONE (22:29)
[2024-06-27 22:55] LABS: BASO # 0.1 K/mm3 (0.0-0.2); BASO % 0.6 % (0.0-2.0); EOS # 0.3 K/mm3 (0.0-0.7); EOS % 3.8 % (0.0-4.0); GRAN # 6.1 K/mm3 (1.4-6.5); GRAN % 69.3 % (42.2-75.2); HEMATOCRIT 38.6 % (42.0-52.0); HEMOGLOBIN 13.2 g/dl (13.5-18.0); LYMPH # 1.5 K/mm3 (1.2-3.4); LYMPH % 16.9 % (20.0-51.0); MEAN CELL VOLUME 90 fl (80.0-100.0); MEAN CORPUSCULAR HEMOGLOBIN 31 pg (27-31); MEAN CORPUSCULAR HGB CONC 34 g/dl (33.0-37.0); MEAN PLATELET VOLUME 9.6 fl (7.4-10.4); MONO # 0.8 K/mm3 (0.1-0.6); MONO % 9.2 % (1.7-9.3); PLATELET COUNT 295 K/mm3 (130-400); RED BLOOD COUNT 4.31 M/mm3 (4.20-5.60)
[2024-06-27 22:59] LABS: INR 1.2 (0.8-3.0); PROTHROMBIN TIME 12.8 SECONDS (9.7-12.8)
[2024-06-28] VITALS (8 sets, daily range): BP systolic 90–110; BP diastolic 56–74; PULSE 70–87; TEMP 97.3–98.2
[2024-06-28] MEDS ORDERED: Acetaminophen 325 MG TAB PO PRN (00:15)
--- NOTE | 2024-06-28 01:26 | NUR ---
Vancomycin Initial Dosing Pharmacy Note Ordering provider: Nicole Jackson R., MD Indication/duration: Chronic sacral decubitus ulcer x 5 days Relevant comorbidities: N/A LABS: WBC = 8.7, SCr = 0.65 (Capped at 0.8) Recommendation: Will draw troughs and follow levels. Loading dose: 2 grams Maintenance dose: 1.25 grams every 12 hours Trough goal: 10-15 ug/mL
[2024-06-28] MEDS ORDERED: ADVIL PM 38 MG-1 TAB PO (01:27)
[2024-06-28] MEDS ORDERED: Primidone 250 MG TAB PO SCH (01:33)
[2024-06-28 02:44] LABS: COLLECTION METHOD CLEAN CATCH
[2024-06-28 02:48] LABS: PH 7.5 (5.0-8.5); URINE APPEARANCE CLEAR (CLEAR/HAZY); URINE BLOOD NEGATIVE (NEGATIVE); URINE COLOR YELLOW (YELLOW); URINE GLUCOSE NEGATIVE (NEGATIVE); URINE KETONE NEGATIVE (NEGATIVE); URINE NITRATE NEGATIVE (NEGATIVE); URINE PROTEIN(semi-quant) NEGATIVE (NEGATIVE); URINE UROBILINOGEN 0.2 E.U/dL (0.2-1.0)
[2024-06-28] MEDS ORDERED: Albuterol/Ipratropium 3 MG-0.5 MG/3 ML Neb Soln IH PRN (03:30)
--- NOTE | 2024-06-28 03:51 | NUR ---
PT RECIEVED BY ED AT 8559
--- NOTE | 2024-06-28 05:43 | NUR ---
ASSESSMENT COMPLETED EARLIER. PT ORIENTED TO ROOM. HAS NO COMPAINTS AT THIS TIME. UNABLE TO PHOTOGRAPH WOUNDS DUE TO DEVICES BEING . MEDICATIONS ADMINISTERED PER EMAR. CALL LIGHT IS WITHIN REACH.
[2024-06-28] MEDS ORDERED: Albuterol/Ipratropium 3 MG-0.5 MG/3 ML Neb Soln IH SCH (08:00)
[2024-06-28] MEDS ORDERED: PHENobarbital 32.4 MG TABLET PO SCH (09:00)
[2024-06-28] MEDS ORDERED: Vancomycin 1.25 GM,Special Dose/Pharmacy Prepared 1.25 GM in NS 250 ML IV SCH (10:00)
--- NOTE | 2024-06-28 12:00 | NUR ---
Patient up in chair eating lunch, he is enjoying the food. Reports increased discomfort to coccyx while in chair. Prn tylenol as ordered. Denies needs at this time
--- NOTE | 2024-06-28 13:50 | NUR ---
Data: Patient accepted spiritual care visit during Spanish Teacher rounds. Patient was watching baseball. Assessment: Patient desired prayer only. Plan of Care: Spanish Teacher offered a prayer. Patient thanked Spanish Teacher. Chaplains will remain available as needed/requested while Patient is admitted to this hospital.
--- NOTE | 2024-06-28 15:44 | NUR ---
Regina called for specialized matress as ordered. Also spoke with security and evs and warehouse freight handler about obtaining a specialized matress for patient as ordered.
--- NOTE | 2024-06-28 16:52 | NUR ---
Blending Plant Operator met with patient to discuss discharge planning. Patient lives at the [facility] and has lived there for the past three years. Patient sees Dr. Roberts for primary care and reported he takes a cab for any appointments he has. Patient remarked he rarely gets out and about, but sometimes will have [employer], the [place] Rn Staff take him places. Patient does not have a drivers license after he had seizure several years ago. Patient reported he is independent with ADLS and has a walker available to him. Patient used to have [facility] get him groceries, however after their prices raised, he now just has [employer] get him groceries as needed. Patient remarked he does not eat much and gets Meals on Wheels. Patient does not have DPOA-HC and was not interested in completing one at this time. Patient is and has a daughter, Suzanne (ph#[phone]) that lives out of state. Patient has another daughter, however she was adopted by her step parent and patient has not seen her since she was [age] years old. Patient's plan for discharge is to return to the [facility]. Discharge Plan; Home ([facility])
--- NOTE | 2024-06-28 18:13 | NUR ---
Specialty mattress applied to bed as ordered. Patient lying on right side. Dinner ordered. Denies needs at this time. Will report off to nightnurse
--- NOTE | 2024-06-28 22:38 | NUR ---
ASSESSMENT COMPLETED EARLIER. MEDICATIONS ADMINISTERED PER EMAR. VSS. WOUND DRESSED WITH MEPILEX. PT HAS NO COMPLAINTS AT THIS TIME. STATES THAT "DINNER WAS GOOD". CALL LIGHT IS WITHIN REACH. DENIES N/V AT THIS TIME.
[2024-06-29] MEDS ORDERED: Home Amoxicillin/Clavulanate K 875 MG #1 TAB/PACK PO SCH
[2024-06-29] MEDS ORDERED: Vancomycin 1.25 GM,Special Dose/Pharmacy Prepared 1.25 GM in NS 250 ML IV SCH (01:00)
[2024-06-29 01:01] VITALS: BP_SYST 103
[2024-06-29 03:46] VITALS: BP 105/69; PULSE 85; TEMP 97.6
[2024-06-29 03:58] VITALS: BP_SYST 105
[2024-06-29 05:22] LABS: BASO # 0.1 K/mm3 (0.0-0.2); BASO % 0.7 % (0.0-2.0); EOS # 0.2 K/mm3 (0.0-0.7); EOS % 2.5 % (0.0-4.0); GRAN # 6.7 K/mm3 (1.4-6.5); GRAN % 70.5 % (42.2-75.2); HEMATOCRIT 40.5 % (42.0-52.0); HEMOGLOBIN 13.7 g/dl (13.5-18.0); LYMPH # 1.6 K/mm3 (1.2-3.4); LYMPH % 16.8 % (20.0-51.0); MEAN CELL VOLUME 91 fl (80.0-100.0); MEAN CORPUSCULAR HEMOGLOBIN 31 pg (27-31); MEAN CORPUSCULAR HGB CONC 34 g/dl (33.0-37.0); MEAN PLATELET VOLUME 9.6 fl (7.4-10.4); MONO # 0.9 K/mm3 (0.1-0.6); PLATELET COUNT 279 K/mm3 (130-400); RED BLOOD COUNT 4.47 M/mm3 (4.20-5.60); REDCELL DISTRIBUTION WIDTH-CV 14.2 % (11.5-14.5)
[2024-06-29 05:41] LABS: CALCIUM 8.8 mg/dL (8.4-10.2); CREATININE, serum 0.75 mg/dL (0.72-1.25)
--- NOTE | 2024-06-29 06:11 | NUR ---
MEDS PASSED. CALL LIGHT IS WITHIN REACH. NO COMPLAINTS AT THIS TIME.
[2024-06-29 07:28] VITALS: BP 109/69; PULSE 78; TEMP 97.7
[2024-06-29 08:00] VITALS: BP_SYST 109
--- NOTE | 2024-06-29 08:00 | NUR ---
PATIENT IS A&O. VSS. REPORTS MILD DISCOMFORT IN COCCYX, GAVE TYLENOL WITH AM MEDS. NO C/O N/V. IV ABX INFUSING VIA PUMP INTO RIGHT HAND IV. PATIENT HAS CHRONIC WOUNDS, MEPILES INPLACE TO COCCYX WOUND, SEE SHIFT ASSESSMENT. HEAD TO TOE ASSESSMENT COMPLETE. SZ PRECAUTIONS INPLACE. DNR/DNI STATUS. NO OTHER NEEDS AT THIS TIME. RT AT BEDSIDE GIVING BREATHING TX. CALL LIGHT IN REACH. BED ALARM ON.
[2024-06-29] MEDS ORDERED: AMOXICILLIN 8751 TAB PO (10:00)
[2024-06-29] MEDS ORDERED: DOXYCYCLINE 10100 MG PO (10:00)
[2024-06-29] MEDS ORDERED: Home Amoxicillin/Clavulanate K 875 MG #1 TAB/PACK PO ONE (11:23)
--- NOTE | 2024-06-29 11:41 | NUR ---
SW informed that patient would be discharging home on this day and would need transportation and HH services set up. House nurse Palma assisted with obtaining uber for patient due to [employer] transportation not recognizing patient in their system. Discharge documenation sent to [facility] health. This SW informed SW team to follow with services for patient upon their arrival Sunday. This SW called to confirm and was not able to confirm information was received.
--- NOTE | 2024-06-29 11:45 | NUR ---
PATIENT DISCHARGING HOME WITH HOME HEALTH ORDERS/WOUND CARE. GAVE DISCHARGE INSTRUCTIONS, E-SCRIPTS SENT BUT PATIENT'S PHARMACY IS CLOSED SO PATIENT SENT WITH EVENING DOSES OF DOXY & AUGMENTIN, SEE MAR. DISCUSSED F/U WITH PCP. ANSWERED QUESTIONS/CONCERNS. DC'D RIGHT HAND IV AND COVERED SITE WITH GAUZE & COBAND. PATIENT IS DRESSED, PACKED, AND ESCORTED OUT VIA WC TO [facility] THAT [facility] [employer] SET UP.
[2024-06-29] MEDS ORDERED: Home Doxycycline Mono 100 MG #2 CAP/PACK PO SCH ×2 (17:00)
--- NOTE | 2024-06-30 13:45 | NUR ---
MEGAN notified early this morning that patient was discharged to his home at [facility] yesterday and requires HH services. Referral was sent to [facility] by previous MEGAN without reviewing Medicare.gov list with patient for preferences. This SW called patient to review Medicare.gov list with him. Patient talking over MEGAN and stated repeatedly that he "was told he would have someone come out and he needs to see a doctor." SW explained the reason for phone call and review list of HH agencies with him. Patient chose [facility]. Patient voiced concern that he needs a doctor since Dr. Roberts retired. Patient has not been established with another provider. MEGAN called the office of previous Dr. Roberts to inquire about setting patient up with new provider. SW was informed that they are not accepting new patients and that patient was not accepted to a new provider within their office when Dr. Roberts retired. MEGAN called patient back to review PCP offices that are accepting new patients. YAJAIRA Silvestre called [facility] office and was able to schedule patient for hosptial follow up on Monday 07/02 at 1415. MEGAN called patient again to give this information. Patient questioned about transportation. SW suggested he call the [employer] bus to schedule ride to appointment or ask his friend/clinic office manager [place] for assistance. Patient voiced understanding. MEGAN spoke with [facility] to notify of referral and updated PCP appointment. Patient is accepted to [facility] for services. MEGAN call [facility] to cancel referral per patient's choice.
== END 2024-06-29 11:45 | disposition home health service (06) ==
LOC: COL.ER 20:50 → SURG 06-28 00:11
PROVIDERS: Emergency Medicine; Nurse Practitioner Family; ADMIT Internal Medicine
DX: L89.159 Pressure ulcer of sacral region, unspecified stage (principal); J96.01 Acute respiratory failure with hypoxia; Z87.891 Personal history of nicotine dependence; J44.9 Chronic obstructive pulmonary disease, unspecified; Z66 Do not resuscitate; D64.9 Anemia, unspecified; G40.911 Epilepsy, unspecified, intractable, with status epilepticus; F32.A Depression, unspecified; R53.1 Weakness; R53.81 Other malaise; S32.040A Wedge compression fracture of fourth lumbar vertebra, initial encounter for closed fracture; Z79.899 Other long term (current) drug therapy
CPT/HCPCS: G0378; J2543; J3370; J7040; J7050; Q9967